=== PATIENT | female | born 1980 | race Caucasian/White ===

== ENCOUNTER 2017-08-12 08:42 | Emergency (ER) | payer SELFPAY ==
[2017-08-12] MEDS: LIDOCAINE WITH 8.4% SOD BICARB 3 ML DISP.SYRIN. IJ (08:57)
[2017-08-12] MEDS ORDERED: IBUPROFEN 800 MG TABLET. PO (09:23)
[2017-08-12] MEDS: IBUPROFEN 800 MG TABLET. PO (09:25)
== END 2017-08-12 09:33 | disposition home or self-care (01) ==
LOC: ER 08:42
DX: L02.414 Cutaneous abscess of left upper limb (principal); J45.909 Unspecified asthma, uncomplicated; I10 Essential (primary) hypertension; Z96.22 Myringotomy tube(s) status; Z98.51 Tubal ligation status
CPT/HCPCS: 10060; 99283-25

== ENCOUNTER 2017-08-18 21:44 | Emergency (ER) | payer OTHER ==
[2017-08-18] MEDS ORDERED: 0.9 % SODIUM CHLORIDE 10 ML DISP.SYRIN. IV (22:00)
[2017-08-18] MEDS: LABETALOL 20 MG/4 ML DISP.SYRIN. IVP (22:14)
[2017-08-18] MEDS: IV NORMAL SALINE 1000ML BAG 1,000 ML IV (22:20)
[2017-08-18 22:31] LABS: BILIRUBIN,URINE NEGATIVE (NEG); CLARITY,URINE CLOUDY; COLOR,URINE YELLOW; GLUCOSE,URINE NEGATIVE (NEG); NITRITE,URINE NEGATIVE (NEG); PH,URINE 7.5; PROTEIN,URINE NEGATIVE (NEG-TRACE); UROBILINOGEN,URINE 0.2 mg/dL (0.2 mg/dL)
[2017-08-18 22:41] LABS: BACTERIA,URINE FEW /HPF (0-FEW); RBC,URINE 0 /HPF (0-2); SQUAMOUS EPITHELIAL CELL,UR MOD /LPF
[2017-08-18 23:12] LABS: ADD MAN DIFF? NO
[2017-08-18 23:14] LABS: BASO # 0.1 x10^3/uL (0.0-0.2); BASO % 1 % (0-3); EOS # 0.2 x10^3/uL (0.0-0.7); EOS % 2 % (0-3); HEMOGLOBIN 13.3 g/dL (12.0-15.5); LYMPH # 3.4 x10^3/uL (1.0-4.8); LYMPH % 35 % (24-48); MEAN CORPUSCULAR HEMOGLOBIN 31 pg (25-35); MEAN CORPUSCULAR HGB CONC 34 g/dL (31-37); MEAN CORPUSCULAR VOLUME 92 fL (79-100); MONO # 0.7 x10^3/uL (0.0-1.1); MONO % 7 % (0-9); NEUT # 5.4 x10^3uL (1.8-7.7); NEUT % 55 % (31-73); PLATELET COUNT 353 x10^3/uL (140-400); RED BLOOD COUNT 4.23 x10^6/uL (3.50-5.40); RED CELL DISTRIBUTION WIDTH 13.4 % (11.5-14.5); WHITE BLOOD COUNT 9.8 x10^3/uL (4.0-11.0)
[2017-08-18 23:23] LABS: ANION GAP 11 (6-14); BLOOD UREA NITROGEN 13 mg/dL (7-20); CALCIUM 8.4 mg/dL (8.5-10.1); CARBON DIOXIDE 25 mmol/L (21-32); CHLORIDE 104 mmol/L (98-107); CREATININE 0.8 mg/dL (0.6-1.0); GFR 80.3; GLUCOSE 110 mg/dL (70-99); POTASSIUM 3.7 mmol/L (3.5-5.1); SODIUM 140 mmol/L (136-145)
[2017-08-18 23:34] LABS: TROPONINI < 0.017 ng/mL (0.000-0.055)
[2017-08-18 23:38] LABS: CKMB MASS < 0.5 ng/mL (0.0-3.6); CREATINE KINASE 62 U/L (26-192)
[2017-08-18 23:38] LABS: NT-PRO BNP 41 pg/mL (0-124)
== END 2017-08-19 | disposition home or self-care (01) ==
LOC: ER 08-19
DX: I10 Essential (primary) hypertension (principal); J45.909 Unspecified asthma, uncomplicated; F17.210 Nicotine dependence, cigarettes, uncomplicated; F15.10 Other stimulant abuse, uncomplicated
CPT/HCPCS: 36415; 71046; 80048; 81001; 82553; 83880; 84484; 85025; 87086; 93005; 96361; 96374; 99285-25; J3490; J7030

== ENCOUNTER 2018-10-19 08:45 | Emergency (ER) | payer SELFPAY ==
[~2018-10-19] VITALS: Ht 162.6 cm; Wt 74.8 kg
[~2018-10-19 08:45] MED LIST: SULF1TAB24 PO
[2018-10-19] MEDS ORDERED: IV NORMAL SALINE 1000ML BAG 1,000 ML IV ONE (09:00)
--- NOTE | 2018-10-19 09:10 | PHYS DOC ---
Past Medical History Past Medical History: Anxiety, Hypertension Past Surgical History: Cholecystectomy, Tubal ligation Additional Past Surgical Histo: sinus surgery, Bilat Myringotomy with tubes Smoking: Cigarettes Alcohol Use: None Drug Use: Methamphetamine, Other Adult General Chief Complaint Chief Complaint: HEADACHE HPI HPI 38-year-old female presenting the emergency pertinent today with a headache. The headaches been present for 2 weeks. She feels that it may be related to her blood pressure. She has a history of high blood pressure. She denies any numbness weakness tingling. The headache is a sharp throbbing pain in the anterior portion of her head. Is nonradiating. She denies any fevers chills or neck stiffness. She denies syncope or vision changes. The pain is moderate. She is taking [id number] medications with minimal to mild relief. ROS is neg for cp,soa, n/v. All other review of systems is negative unless otherwise noted in history of present illness. ED course: 38-year-old female presenting with a headache. She describes this headache is similar to previous headaches. She does have a history of headaches. It was not sudden in onset. No red flags. IV fluids with Reglan and Benadryl ordered. 09:04AM. On examination the pt is feeling better. 09:47AM Second reexamination the patient continues to feel better. We will discharge her home to follow up with PCP.The patient has been examined and was not found to have an emergency medical condition. The patient was then discharged home in stable condition to follow up with their primary care physician over the next 1- 2 days. They were to return if their symptoms worsened or if they were concerned for any reason. They were also instructed to return to the emergency department if they were unable to get the recommended and appropriate follow- up. [id number] discharge instructions and return precautions were given. Patient's questions were answered to their satisfaction. Patient is comfortable with plan.10:49AM Review of Systems Review of Systems SEE ABOVE. Current Medications Current Medications Current Medications Medications (Trade) Dose Ordered Sig/Abi Start Time Stop Time Status Last Admin Dose Admin Acetaminophen (Tylenol) 650 mg 1X ONCE 10/19/18 10:30 10/19/18 10:31 DC Dexamethasone Sodium Phosphate (Decadron) 10 mg 1X ONCE 10/19/18 10:30 10/19/18 10:31 DC Diphenhydramine HCl (Benadryl) 25 mg 1X ONCE 10/19/18 09:45 10/19/18 09:46 DC 10/19/18 09:30 25 MG Metoclopramide HCl (Reglan) 10 mg 1X ONCE 10/19/18 09:45 10/19/18 09:46 DC 10/19/18 09:29 10 MG Sodium Chloride 1,000 ml @ 1,000 mls/hr 1X ONCE 10/19/18 09:00 10/19/18 09:59 DC 10/19/18 09:33 1,000 MLS/HR Allergies Allergies Allergies Coded Allergies Type Severity Reaction Last Updated Verified No Known Drug Allergies 07/25/13 No Physical Exam Physical Exam SEE ABOVE Constitutional: Well developed, well nourished, no acute distress, non-toxic appearance. HENT: Normocephalic, atraumatic, bilateral external ears normal, oropharynx moist, no oral exudates, nose normal. Eyes: PERRLA, EOMI, conjunctiva normal, no discharge. Neck: Normal range of motion, no tenderness, supple, no stridor. [] Normal range of motion of the neck without any pain. No nuchal rigidity. Negative Brudzinski's sign. Negative Kernig sign. Cardiovascular:Heart rate regular rhythm, no murmur Lungs & Thorax: Bilateral breath sounds clear to auscultation Abdomen: Bowel sounds normal, soft, no tenderness, no masses, no pulsatile masses. [] Skin: Warm, dry, no erythema, no rash. [] No petechiae. Back: No tenderness, no CVA tenderness. [] Extremities: No tenderness, no cyanosis, no clubbing, ROM intact, no edema. Neurologic: Mental status: Awake oriented and alert x3 Cranial nerves: Extraocular movements intact, eyebrows shilpa bilaterally, smile symmetric, uvula elevation nl, shoulder shrug intact bilaterally, tongue protrusion normal DTRs: 2+ Sensation: equal and normal in all extremities Strength: 5/5 in upper and lower extremities bilaterally Psychologic: Affect normal, judgement normal, mood normal. [] Current Patient Data Vital Signs Vital Signs Date Time Temp Pulse Resp B/P (MAP) Pulse Ox O2 Delivery O2 Flow Rate FiO2 10/19/18 09:04 98.5 100 14 137/106 (116) 98 Room Air 98.5 EKG EKG [] Radiology/Procedures Radiology/Procedures [] Course & Med Decision Making Course & Med Decision Making Pertinent Labs and Imaging studies reviewed. (See chart for details) [] Dragon Disclaimer Dragon Disclaimer This electronic medical record was generated, in whole or in part, using a voice recognition dictation system. Departure Departure Impression: Primary Impression: Headache Disposition: 01 HOME, SELF-CARE Condition: STABLE Referrals: NO PCP (PCP) Patient Instructions: Headache, FAQs Additional Instructions: Thank you for allowing us to participate in your care today. Return to the emergency department you have any new or worsening symptoms, or if you are concerned for any reason. Return to emergency department if you have any new or concerning symptoms including but not limited to fever, chills, nausea, vomiting, intractable pain, any new rashes, chest pain, shortness of air , uncontrolled bleeding, difficulty breathing, and/or vision loss. Follow up with your primary care physician within 1-2 days. Call your Primary Doctor tomorrow and inform them of your visit today. If you do not have a primary care provider we are happy to provide you with a list of our primary care providers contact information. This condition should be evaluated by your primary care physician and any recommended consulting services for continued management within 2 days after discharge. If at any time, you are having difficulty getting into your primary care doctor or a specialist, return to the emergency department. CJ ROD MD Oct 19, 2018 09:10
[2018-10-19] MEDS ORDERED: METOCLOPRAMIDE 10 MG TABLET. PO ONE (09:45)
[2018-10-19] MEDS ORDERED: diphenhydrAMINE 50 MG/ML VIAL IVP ONE (09:45)
[2018-10-19] MEDS ORDERED: DEXAMETHASONE SOD PHOS 20 MG/5 ML VIAL. IV ONE (10:30)
[2018-10-19] MEDS ORDERED: ACETAMINOPHEN 325 MG TABLET. PO ONE (10:30)
[2018-10-19 11:00] VITALS: BP 158/93
== END 2018-10-19 11:11 | disposition home or self-care (01) ==
LOC: ER 08:45
DX: R51 Headache (principal); F41.9 Anxiety disorder, unspecified; I10 Essential (primary) hypertension; Z90.49 Acquired absence of other specified parts of digestive tract; Z98.51 Tubal ligation status; Z96.22 Myringotomy tube(s) status; F17.210 Nicotine dependence, cigarettes, uncomplicated
CPT/HCPCS: 96374; 99283; J1200; J7030; J8597